=== PATIENT | female | born 1985 | race Two or more races ===

== ENCOUNTER 2022-12-11 16:25 | Inpatient (IN) | payer OTHER ==
[~2022-12-11] VITALS: Ht 165.1 cm; Wt 97.5 kg
== END 2022-12-29 16:04 | disposition home or self-care (01) | DRG 796 ==
LOC: ER 16:25 → OB/GYN 12-12 08:37
PROVIDERS: ADMIT Obstetrics & Gynecology; ATTEND Obstetrics & Gynecology
PROC: BY49ZZZ Ultrasonography of First Trimester, Single Fetus (ICD-10-PCS; 2022-12-11)
PROC: BU4CZZZ Ultrasonography of Uterus and Ovaries (ICD-10-PCS; 2022-12-11)
PROC: 4A1HXCZ Monitoring of Products of Conception, Cardiac Rate, External Approach (ICD-10-PCS; 2022-12-12)
PROC: 10D17ZZ Extraction of Products of Conception, Retained, Via Natural or Artificial Opening (ICD-10-PCS; principal; 2022-12-22)
PROC: 10E0XZZ Delivery of Products of Conception, External Approach (ICD-10-PCS; 2022-12-22)
PROC: 3E0DXGC Introduction of Other Therapeutic Substance into Mouth and Pharynx, External Approach (ICD-10-PCS; 2022-12-22)
PROC: 3E033VJ Introduction of Other Hormone into Peripheral Vein, Percutaneous Approach (ICD-10-PCS; 2022-12-22)
PROC: BY49ZZZ Ultrasonography of First Trimester, Single Fetus (ICD-10-PCS; 2022-12-22)
PROC: BU4CZZZ Ultrasonography of Uterus and Ovaries (ICD-10-PCS; 2022-12-22)
PROC: BW21Y0Z Computerized Tomography (CT Scan) of Abdomen and Pelvis using Other Contrast, Unenhanced and Enhanced (ICD-10-PCS; 2022-12-23)
PROC: 3E0F7GC Introduction of Other Therapeutic Substance into Respiratory Tract, Via Natural or Artificial Opening (ICD-10-PCS; 2022-12-27)
PROC: B246ZZZ Ultrasonography of Right and Left Heart (ICD-10-PCS; 2022-12-29)
DX: O03.6 Delayed or excessive hemorrhage following complete or unspecified spontaneous abortion (principal); O03.87 Sepsis following complete or unspecified spontaneous abortion; A41.89 Other specified sepsis; Z37.1 Single stillbirth; O41.1220 Chorioamnionitis, second trimester, not applicable or unspecified; J45.901 Unspecified asthma with (acute) exacerbation; O99.52 Diseases of the respiratory system complicating childbirth; J10.1 Influenza due to other identified influenza virus with other respiratory manifestations; B96.89 Other specified bacterial agents as the cause of diseases classified elsewhere; O36.80X0 Pregnancy with inconclusive fetal viability, not applicable or unspecified; O34.211 Maternal care for low transverse scar from previous cesarean delivery; Z3A.16 16 weeks gestation of pregnancy; Z20.822 Contact with and (suspected) exposure to COVID-19

== ENCOUNTER 2024-12-20 13:09 | Emergency (ER) | payer OTHER ==
[~2024-12-20] VITALS: Ht 165.1 cm; Wt 92.5 kg
[2024-12-20 16:48] LABS: HEMATOCRIT 36.7 % (36.0-45.00); HEMOGLOBIN 12.7 g/dL (12.0-15.00); MEAN CELL VOLUME 86.5 fL (80.00-100.00); MEAN CORPUSCULAR HGB CONC 34.6 g/dl (32.0-36.0); PLATELET COUNT 226 K/uL (150-450); RED BLOOD COUNT 4.24 M/uL (4.00-6.00); RED CELL DISTRIBUTION WIDTH 13.2 % (11.5-14.5)
[2024-12-20 17:41] LABS: PH,URINE 6.5 (5.0-8.0); URINE APPEARANCE Clear; URINE BILIRRUBIN Negative (NEGATIVE); URINE BLOOD Negative; URINE COLOR Yellow; URINE GLUCOSE Negative (NEGATIVE); URINE KETONE Negative (NEGATIVE); URINE LEUKOCYTE Negative; URINE NITRATE Negative; URINE PROTEIN Negative (NEGATIVE); URINE UROBILINOGEN 0.2 E.U./dl
[2024-12-20 17:42] LABS: URINE BACTERIA 203.1 uL (0.0-1933); URINE EPITHELIAL CELLS 8.3 uL (0.0-38.8); URINE RBC 9.5 uL (0.0-20.8); URINE WBC 2.8 uL (0.0-23.2)
== END 2024-12-20 18:13 ==
LOC: ER 13:11
PROVIDERS: Emergency Medicine; General Practice
DX: R10.2 Pelvic and perineal pain (principal); O20.8 Other hemorrhage in early pregnancy; Z3A.01 Less than 8 weeks gestation of pregnancy; D25.9 Leiomyoma of uterus, unspecified; N93.9 Abnormal uterine and vaginal bleeding, unspecified; Z88.1 Allergy status to other antibiotic agents

== ENCOUNTER 2025-03-22 16:23 | Emergency (ER) | payer OTHER ==
[~2025-03-22] VITALS: Ht 165.1 cm; Wt 105.2 kg
[2025-03-22 17:20] VITALS: BP 154/76; O2SAT 99
[2025-03-22] MEDS ORDERED: CEFTRIAXONE SODIUM 2,000 MG VIAL IM STA (17:44)
[2025-03-22] MEDS ORDERED: CEFTRIAXONE SODIUM 2,000 MG VIAL ONE (17:47)
[2025-03-22] MEDS ORDERED: LIDOCAINE HCL 1% 10ML VIAL ONE (17:49)
[2025-03-22 18:39] LABS: BASO % 0.4 % (0.1-1.2); EOS # 0.13 (0.04-0.54); EOS % 1.4 % (0.7-7.0); LYMPH # 1.68 (1.18-3.74); LYMPH % 18.0 % (19.3-53.1); MEAN PLATELET VOLUME 11.70 fl (9.4-12.4); MONO # 0.55 (0.24-0.82); MONO % 5.9 % (4.7-12.5); NEUT # 6.77 (1.56-6.13); NEUT % 72.8 % (34.0-71.1); RED CELL DISTRIBUTION WIDTH 13.8 % (11.6-14.4)
[2025-03-22 18:48] LABS: COVID-19 AG NEGATIVE (NEGATIVE)
[2025-03-22 19:02] LABS: ALT/SGPT 26.0 U/L (12-78); AST/SGOT 11.0 U/L (15-37); BILIRUBIN TOTAL 0.21 mg/dL (0.3-1.2); BUN CREA RATIO 15.0 (7.0-25.0); CREATININE SERUM 0.52 mg/dL (0.55-1.02); GFR 132.69; GLOBULINA 3.6 G/DL (2.4-3.5); GLUCOSE FASTING 135.0 mg/dL (65-100); OSMOLALITY SERUM 278.0 MOSM/KG (275-295)
[2025-03-22] MEDS ORDERED: NEOMYCIN SULFATE/DEX NA PH OPHT DROPS OP STA (19:55)
== END 2025-03-22 20:22 | disposition home or self-care (01) ==
LOC: ER 16:23
PROVIDERS: General Practice
DX: Z34.90 Encounter for supervision of normal pregnancy, unspecified, unspecified trimester (principal); Z3A.21 21 weeks gestation of pregnancy; J06.9 Acute upper respiratory infection, unspecified; Z20.822 Contact with and (suspected) exposure to COVID-19; Z88.3 Allergy status to other anti-infective agents

== ENCOUNTER 2025-05-15 17:03 | Emergency (ER) | payer OTHER ==
[~2025-05-15] VITALS: Ht 165.1 cm; Wt 110.7 kg
[2025-05-15 17:59] VITALS: BP 117/77; O2SAT 99
[2025-05-15] MEDS ORDERED: ASA81 MG PO (18:00)
[2025-05-15] MEDS ORDERED: PROAIR RESPICL90 MCG IH (18:00)
[2025-05-15] MEDS ORDERED: IPRATROPIUM BROMIDE 0.5 MG/2.5 ML AMPUL.NEB IH SCH (18:30)
[2025-05-15] MEDS ORDERED: LEVALBUTEROL HCL 1.25 MG/3 ML SOLUTION IH SCH (18:30)
[2025-05-15] MEDS ORDERED: LEVALBUTEROL HCL 1.25 MG/3 ML SOLUTION IH ONE (18:36)
[2025-05-15 18:50] LABS: BASO % 0.4 % (0.1-1.2); EOS # 0.21 (0.04-0.54); EOS % 2.8 % (0.7-7.0); LYMPH # 1.42 (1.18-3.74); LYMPH % 19.2 % (19.3-53.1); MEAN PLATELET VOLUME 11.30 fl (9.4-12.4); MONO # 0.60 (0.24-0.82); MONO % 8.1 % (4.7-12.5); NEUT # 5.06 (1.56-6.13); NEUT % 68.6 % (34.0-71.1); RED CELL DISTRIBUTION WIDTH 13.4 % (11.6-14.4)
[2025-05-15 19:05] LABS: COVID-19 AG NEGATIVE (NEGATIVE)
[2025-05-15 19:22] LABS: URINE APPEARANCE Clear; URINE BILIRRUBIN Negative (NEGATIVE); URINE BLOOD Negative; URINE COLOR Yellow; URINE GLUCOSE Negative (NEGATIVE); URINE KETONE Trace (NEGATIVE); URINE LEUKOCYTE Small; URINE NITRATE Negative; URINE PROTEIN Negative (NEGATIVE); URINE UROBILINOGEN 0.2 E.U./dl
[2025-05-15 19:23] LABS: URINE BACTERIA 1913.5 uL (0.0-1933); URINE EPITHELIAL CELLS 86.9 uL (0.0-38.8); URINE RBC 6.0 uL (0.0-20.8); URINE WBC 30.9 uL (0.0-23.2)
[2025-05-15 19:24] LABS: URINE CAST 0.29 uL (0.0-1.40)
[2025-05-15 19:36] LABS: ALT/SGPT 24.0 U/L (12-78); AST/SGOT 14.0 U/L (15-37); BILIRUBIN TOTAL 0.14 mg/dL (0.3-1.2); BUN CREA RATIO 10.0 (7.0-25.0); CREATININE SERUM 0.79 mg/dL (0.55-1.02); GFR 81.89; GLOBULINA 3.9 G/DL (2.4-3.5); GLUCOSE FASTING 105.0 mg/dL (65-100); OSMOLALITY SERUM 282.0 MOSM/KG (275-295)
== END 2025-05-15 21:29 | disposition home or self-care (01) ==
LOC: ER 17:03
PROVIDERS: General Practice
DX: O26.893 Other specified pregnancy related conditions, third trimester (principal); R05.9 Cough, unspecified; Z3A.28 28 weeks gestation of pregnancy; Z20.822 Contact with and (suspected) exposure to COVID-19; Z88.8 Allergy status to other drugs, medicaments and biological substances

== ENCOUNTER 2025-07-15 14:08 | Inpatient (IN) | payer OTHER ==
[~2025-07-15] VITALS: Ht 165.1 cm; Wt 3.6 kg
[~2025-07-15 14:08] MED LIST: ASA81 MG PO; PROAIR RESPICL90 MCG IH
[2025-07-15 15:14] LABS: URINE APPEARANCE Clear; URINE BILIRRUBIN Negative (NEGATIVE); URINE BLOOD Negative; URINE COLOR Yellow; URINE GLUCOSE Negative (NEGATIVE); URINE LEUKOCYTE Trace; URINE NITRATE Negative; URINE PROTEIN Negative (NEGATIVE); URINE UROBILINOGEN 0.2 E.U./dl
[2025-07-15 15:16] LABS: BASO % 0.4 % (0.1-1.2); EOS # 0.06 (0.04-0.54); EOS % 1.1 % (0.7-7.0); LYMPH # 1.19 (1.18-3.74); LYMPH % 21.9 % (19.3-53.1); MEAN PLATELET VOLUME 13.50 fl (9.4-12.4); MONO # 0.47 (0.24-0.82); MONO % 8.6 % (4.7-12.5); NEUT # 3.68 (1.56-6.13); NEUT % 67.6 % (34.0-71.1); RED CELL DISTRIBUTION WIDTH 13.2 % (11.6-14.4)
[2025-07-15 15:17] LABS: URINE BACTERIA 1705.0 uL (0.0-1933); URINE EPITHELIAL CELLS 43.0 uL (0.0-38.8); URINE RBC 2.4 uL (0.0-20.8); URINE WBC 34.7 uL (0.0-23.2)
[2025-07-15 15:37] LABS: INR 0.98
[2025-07-15 15:42] LABS: ALT/SGPT 27.0 U/L (12-78); AST/SGOT 19.0 U/L (15-37); BILIRUBIN TOTAL 0.22 mg/dL (0.3-1.2); BUN CREA RATIO 12.0 (7.0-25.0); CREATININE SERUM 0.5 mg/dL (0.55-1.02); GFR 138.83; GLOBULINA 3.4 G/DL (2.4-3.5); GLUCOSE FASTING 74.0 mg/dL (65-100); OSMOLALITY SERUM 276.0 MOSM/KG (275-295)
[2025-07-15 16:15] LABS: URINE CAST 0.14 uL (0.0-1.40); URINE KETONE 40 (NEGATIVE)
[2025-07-16 14:24] VITALS: BP 113/72
[2025-07-16] MEDS ORDERED: CEFAZOLIN SODIUM 1,000 MG VIAL ONE (17:31)
[2025-07-16] MEDS ORDERED: ERYTHROMYCIN BASE OPHT 1GM EACH TUBE OP ONE (17:39)
[2025-07-16] MEDS ORDERED: OXYTOCIN 10 UNITS/ML VIAL ONE (17:39)
[2025-07-16] MEDS ORDERED: KETOROLAC TROMETHAMINE 60 MG VIAL IM STA (20:14)
[2025-07-16] MEDS ORDERED: PROMETHAZINE HCL 25 MG/ML AMPUL IM PRN (20:15)
[2025-07-16] MEDS ORDERED: CHLORHEXIDINE GLUCONATE 120 ML BOTTLE TOP ONE (20:15)
[2025-07-16] MEDS ORDERED: OXYTOCIN 1,000 ML IV SCH (20:15)
[2025-07-16] MEDS ORDERED: RINGERS SOLUTION,LACTATED 1,000 ML IV SCH (20:15)
[2025-07-16] MEDS ORDERED: ONDANSETRON HCL 2 MG/ML VIAL ONE (22:05)
[2025-07-16] MEDS ORDERED: DEXAMETHASONE SODIUM PHOSPHATE 4 MG/ML VIAL ONE (22:05)
[2025-07-17 00:54] LABS: BASO % 0.3 % (0.1-1.2); EOS # 0.02 (0.04-0.54); EOS % 0.2 % (0.7-7.0); LYMPH # 1.17 (1.18-3.74); LYMPH % 12.6 % (19.3-53.1); MEAN PLATELET VOLUME 13.60 fl (9.4-12.4); MONO # 0.69 (0.24-0.82); MONO % 7.4 % (4.7-12.5); NEUT # 7.37 (1.56-6.13); NEUT % 79.3 % (34.0-71.1); RED CELL DISTRIBUTION WIDTH 13.2 % (11.6-14.4)
[2025-07-17] MEDS ORDERED: OXYTOCIN 10 UNITS/ML VIAL ONE (01:04)
[2025-07-17 02:10] VITALS: BP 113/69
[2025-07-17 08:00] VITALS: BP 115/70
[2025-07-17] MEDS ORDERED: ACETAMINOPHEN 650 MG SUPP.RECT RECTAL PRN (09:30)
[2025-07-17] MEDS ORDERED: OxyCODONE HCL 5 MG TABLET (ROXICODONE) PO PRN (09:30)
[2025-07-17] MEDS ORDERED: OxyCODONE HCL ER 10MG TAB (OxyCONTIN) PO PRN (09:30)
[2025-07-17 16:00] VITALS: BP 111/75
[2025-07-17] MEDS ORDERED: BISACODYL 10 MG/SUPP.RECT SUPP.RECT RECTAL STA (18:51)
[2025-07-18 01:31] VITALS: BP 111/69
[2025-07-18 03:00] VITALS: BP 103/67
[2025-07-18 08:00] VITALS: BP 107/66
[2025-07-18] MEDS ORDERED: ACETAMINOPHEN 325 MG TABLET PO PRN (09:30)
[2025-07-18 16:02] VITALS: BP 99/60
[2025-07-19 00:48] VITALS: BP 108/67
[2025-07-19 09:35] VITALS: BP 130/79
== END 2025-07-19 17:31 | disposition home or self-care (01) | DRG 785 ==
LOC: OB/GYN 07-16 14:00 → O/R 07-16 16:00 → OB/GYN 07-16 22:52
PROVIDERS: ADMIT Obstetrics & Gynecology; ATTEND Obstetrics & Gynecology
PROC: 0UB70ZZ Excision of Bilateral Fallopian Tubes, Open Approach (ICD-10-PCS; 2025-07-16)
PROC: 4A1HXCZ Monitoring of Products of Conception, Cardiac Rate, External Approach (ICD-10-PCS; 2025-07-16)
PROC: 10D00Z1 Extraction of Products of Conception, Low, Open Approach (ICD-10-PCS; principal; 2025-07-16 17:00)
DX: O13.4 Gestational [pregnancy-induced] hypertension without significant proteinuria, complicating childbirth (principal); O34.211 Maternal care for low transverse scar from previous cesarean delivery; Z3A.38 38 weeks gestation of pregnancy; Z37.0 Single live birth; Z30.2 Encounter for sterilization